=== PATIENT | female | born 1955 | race Caucasian/White ===

== ENCOUNTER → 2016-11-09 | Outpatient (CLI) | payer OTHER ==
--- NOTE | 2016-11-09 12:44 | ECHOF ---
Referral Reason:I51.7 Cardiomegaly MEASUREMENTS -------- HEIGHT: 162.6 cm WEIGHT: 102.1 kg BP: 130/60 RVIDd: 2.7 cm (< 3.3) IVSd: 1.0 cm (0.6 - 1.1) LVIDd: 5.3 cm (3.9 - 5.3) LVPWd: 1.4 cm (0.6 - 1.1) IVSs: 1.3 cm LVIDs: 4.2 cm LVPWs: 1.2 cm LA Diam: 3.4 cm (2.7 - 3.8) Ao Diam: 3.0 cm (2.0 - 3.7) AV Cusp: 1.9 cm (1.5 - 2.6) LA Diam: 3.6 cm (2.7 - 3.8) MV EXCURSION: 17.007 mm (> 18.000) MV EF SLOPE: 71 mm/s (70 - 150) EPSS: 0.8 cm MV E Lucho: 0.41 m/s MV DecT: 169 ms MV A Lucho: 0.67 m/s MV E/A Ratio: 0.61 RAP: 5.00 mmHg RVSP: 13.08 mmHg FINDINGS -------- Sinus rhythm. This was a technically adequate study. There is mild concentric left ventricular hypertrophy. Overall left ventricular systolic function is low-normal with, an EF between 50 - 55 %. The right ventricle is normal in size. The left atrial size is normal. The right atrial size is normal. There is mild aortic valve sclerosis. There is no evidence of aortic regurgitation. Mild mitral annular calcification present. Mild mitral regurgitation is present. Mild tricuspid regurgitation present. There is no evidence of pulmonary hypertension. The right ventricular systolic pressure, as measured by Doppler, is 13.08mmHg. There is no pulmonic regurgitation present. The aortic root size is normal. Echo free space may represent effusion or a pericardial fat pad. CONCLUSIONS -------- 1. There is mild concentric left ventricular hypertrophy. 2. Overall left ventricular systolic function is low-normal with, an EF between 50 - 55 %. 3. There is mild aortic valve sclerosis. 4. Mild mitral annular calcification present. 5. Mild mitral regurgitation is present. 6. Mild tricuspid regurgitation present. 7. There is no evidence of pulmonary hypertension. 8. The right ventricular systolic pressure, as measured by Doppler, is 13.08mmHg. 9. Echo free space may represent effusion or a pericardial fat pad. [employer]LA[employer]OR ROOM WORKER: July Cobos RDCS
--- NOTE | 2016-11-09 12:58 | MM ---
Reason for exam: screening (asymptomatic). Last mammogram was performed 1 year and 2 months ago. History: Patient is postmenopausal. Physical Findings: A clinical breast exam by your physician is recommended on an annual basis and results should be correlated with mammographic findings. MG Screening Mammo w CAD Bilateral CC and MLO view(s) were taken. Prior study comparison: September 02, 2015, bilateral MG 3d screening mammo w/cad. May 10, 2014, bilateral MG screening mammo w CAD. There is no discrete abnormality. ASSESSMENT: Negative, BI-RAD 1 RECOMMENDATION: Routine screening mammogram of both breasts in 1 year.
== END | disposition home or self-care (01) ==
LOC: RADMAMWWP 10:46
PROVIDERS: ATTEND Family Medicine
DX: Z12.31 Encounter for screening mammogram for malignant neoplasm of breast (principal); I51.7 Cardiomegaly; I08.3 Combined rheumatic disorders of mitral, aortic and tricuspid valves
CPT/HCPCS: 93306; G0202

== ENCOUNTER → 2020-12-23 | Outpatient (CLI) | payer MEDICARE ==
--- NOTE | 2020-12-23 20:20 | BD ---
EXAMINATION TYPE: Axial Bone Density DATE OF EXAM: 12/23/2020 COMPARISON: 05.10.2014 CLINICAL HISTORY: 65 YR OLD FEMALE.....ICD-10 CODE: Z78.0 POST MENOPAUSAL Height: 62.3 Weight: 214 FRAX RISK QUESTIONS: Secondary Osteoporosis: YES 3. Menopause before 45: YES, AT AGE 41 RISK FACTORS HISTORY OF: Postmenopausal woman: YES, AT AGE 41, TOTAL HYST Hyperparathyroidism: NO Adrenal Insufficiency: NO MEDICATIONS: Additional Medications: BP MEDS Additional History: HYPERTENSION, POST MENOPAUSAL, ARTHRITIS EXAM MEASUREMENTS: Bone mineral densitometry was performed using the [employer] System. Bone mineral density as measured about the Lumbar spine is: ----- L1-L4(G/cm2): 1.183 T Score Values are as follows: ----- L1: 1.1 ----- L2: -0.8 ----- L3: 0.1 ----- L4: -0.3 ----- L1-L4: 0.0 Bone mineral density has: Decreased -3.5% since study of: 05.10.2014 Bone mineral density about the R hip (g/cm2): 0.994 Bone mineral density about the L hip (g/cm2): 1.062 T Score values are as follows: -----R Neck: -1.4 -----L Neck: -0.8 -----R Total: -0.1 -----L Total: 0.4 Bone mineral density has: Decreased -2.7% since study of: 05.10.2014 FRAX%s: THERE IS A 8.0% CHANCE FOR A MAJOR OSTEOPOROTIC FX AND A 0.8% FOR HIP......PROBABILITY FOR FX IN 10 YRS TIME IMPRESSION: Osteopenia (T Score between -2.5 and -1). There is slightly increased risk of fracture and the patient may be considered for treatment. Re-Screen 2-5 years. NOTE: T-SCORE=SD OF THE YOUNG ADULT MEAN.
--- NOTE | 2020-12-28 13:14 | MM ---
Reason for exam: screening (asymptomatic). Last mammogram was performed 4 years and 1 month ago. History: Patient is postmenopausal. Physical Findings: A clinical breast exam by your physician is recommended on an annual basis and results should be correlated with mammographic findings. MG 3D Screening Mammo W/Cad Bilateral CC and MLO view(s) were taken. Prior study comparison: November 09, 2016, bilateral MG screening mammo w CAD. September 02, 2015, bilateral MG 3d screening mammo w/cad. The breast tissue is heterogeneously dense. This may lower the sensitivity of mammography. ASSESSMENT: Negative, BI-RAD 1 RECOMMENDATION: Routine screening mammogram of both breasts in 1 year.
== END | disposition home or self-care (01) ==
LOC: RADMAMWWP 07:38
PROVIDERS: ATTEND Family Medicine
DX: Z12.31 Encounter for screening mammogram for malignant neoplasm of breast (principal); Z78.0 Asymptomatic menopausal state; M85.80 Other specified disorders of bone density and structure, unspecified site
CPT/HCPCS: 77063; 77067; 77080

== ENCOUNTER → 2022-02-07 | Outpatient (CLI) | payer MEDICARE ==
--- NOTE | 2022-02-08 17:25 | MM ---
Reason for Exam: Screening (asymptomatic). Last mammogram was performed 1 year(s) and 1 month(s) ago. Patient History: Menarche at age 10. First Full-Term at age 18. Left ovary removed at age 38. Right ovary removed at age 38. Hysterectomy at age 38. Postmenopausal. Risk Values: Gela 5 year model risk: 1.3%. NCI Lifetime model risk: 4.6%. Prior Study Comparison: 09/02/2015 Bilateral Screening Mammogram, [facility]. 11/09/2016 Bilateral Screening Mammogram, [facility]. 12/23/2020 Bilateral Screening Mammogram, [facility]. Tissue Density: The breast tissue is heterogeneously dense. This may lower the sensitivity of mammography. Findings: Analyzed By CAD. Unchanged bilateral asymmetric densities. No significant change from prior exams. Overall Assessment: Benign, BI-RAD 2 Management: Screening Mammogram of both breasts in 1 year. 1. Patient should continue monthly self breast exams. 2. A clinical breast exam by your physician is recommended on an annual basis. 3. This exam should not preclude additional follow-up of suspicious palpable abnormalities. Electronically signed and approved by: Kendall Willett M.D. Radiologist
== END | disposition home or self-care (01) ==
LOC: RADMAMWWP 08:14
PROVIDERS: ATTEND Family Medicine
DX: Z12.31 Encounter for screening mammogram for malignant neoplasm of breast (principal); Z78.0 Asymptomatic menopausal state
CPT/HCPCS: 77063; 77067

== ENCOUNTER → 2023-02-27 | Outpatient (CLI) | payer MEDICARE ==
--- NOTE | 2023-02-27 11:02 | BD ---
EXAMINATION TYPE: Axial Bone Density DATE OF EXAM: 02/27/2023 CLINICAL HISTORY: 67 years old Female. ICD-10 CODE: Z78.0 ASYMPTOMATIC GERALDINE Height: 63.5 in Weight: 216 lbs FRAX RISK QUESTIONS: Secondary Osteoporosis: 3. Menopause before 45: total hysterectomy age 38 RISK FACTORS HISTORY OF: Active: yes Postmenopausal woman: total hysterectomy age 38 MEDICATIONS: Additional Medications: blood pressure meds EXAM MEASUREMENTS: Bone mineral densitometry was performed using the [employer] System. Bone mineral density as measured about the Lumbar spine is: ----- L1-L4(G/cm2): 1.146 T Score Values are as follows: ----- L1: -0.2 ----- L2: -0.7 ----- L3: -0.2 ----- L4: -0.2 ----- L1-L4: -0.3 Z Score Values are as follows: ----- L1: 0.3 ----- L2: -0.2 ----- L3: 0.4 ----- L4: 0.4 ----- L1-L4: 0.3 Bone mineral density has: Decreased -3.1% since study of: 12/23/2020 Bone mineral density about the R hip (g/cm2): 0.941 Bone mineral density about the L hip (g/cm2): 1.024 T Score values are as follows: -----R Neck: -1.6 -----L Neck: -1.5 -----R Total: -0.5 -----L Total: 0.1 Z Score values are as follows: -----R Neck: -0.7 -----L Neck: -0.6 -----R Total: 0.1 -----L Total: 0.7 Bone mineral density has: Decreased -4.0% since study of: 12/23/2020 FRAX%s: The graph provided illustrates a 9.0% chance for a major osteoporotic fx and a 1.2% chance fo r the hips probability for fx in 10 years time. IMPRESSION: Osteopenia (T Score between -2.5 and -1). There is slightly increased risk of fracture and the patient may be considered for treatment. Re-Screen 2-5 years. NOTE: T-SCORE=SD OF THE YOUNG ADULT MEAN.
--- NOTE | 2023-02-28 08:39 | MM ---
Reason for Exam: Screening (asymptomatic). Last mammogram was performed 1 year(s) and 1 month(s) ago. Patient History: Menarche at age 10. First Full-Term at age 18. Left ovary removed at age 38. Right ovary removed at age 38. Hysterectomy at age 38. Postmenopausal. Risk Values: Gela 5 year model risk: 1.4%. NCI Lifetime model risk: 4.4%. Prior Study Comparison: 11/09/2016 Bilateral Screening Mammogram, [facility]. 12/23/2020 Bilateral Screening Mammogram, [facility]. 02/07/2022 Bilateral MG 3D screening mammo w/cad, [facility]. Tissue Density: The breast tissue is heterogeneously dense. This may lower the sensitivity of mammography. Findings: Analyzed By CAD. There is no suspicious group of microcalcifications or new suspicious mass in either breast. Overall Assessment: Negative, BI-RAD 1 Management: Screening Mammogram of both breasts in [address] [facility] will attempt to contact patient to return for supplemental views and ultrasound if indicated. Patient should continue monthly self-breast exams. A clinical breast exam by your physician is recommended on an annual basis. This exam should not preclude additional follow-up of suspicious palpable abnormalities. Note on Gela scores and lifetime risk: 1. A Gela score greater than 3% is considered moderate risk. If this is the case, consider specialist referral to assess eligibility for a risk reducing agent. 2. If overall lifetime risk for the development of breast cancer is 20% or higher, the patient may qualify for future screening with alternating mammogram and breast MRI. Electronically signed and approved by: Miller Centeno DO
== END | disposition home or self-care (01) ==
LOC: RADMAMWWP 08:53
PROVIDERS: ATTEND Family Medicine
DX: Z12.31 Encounter for screening mammogram for malignant neoplasm of breast (principal); M85.89 Other specified disorders of bone density and structure, multiple sites; Z78.0 Asymptomatic menopausal state
CPT/HCPCS: 77067; 77080

== ENCOUNTER 2023-04-03 12:55 | Day surgery (SDC) | payer MEDICARE ==
[2023-04-03 13:51] VITALS: TEMP 97.6
[2023-04-03] MEDS ORDERED: LACTATED RINGERS 1,000 ML IV ONE ×2 (13:58)
[2023-04-03] MEDS ORDERED: ONDANSETRON 4 MG/2 ML VIAL ONE (13:59)
[2023-04-03] MEDS ORDERED: ONDANSETRON 4 MG/2 ML VIAL IVP ONE (14:00)
[2023-04-03] MEDS ORDERED: PROPOFOL 10 MG/ML 20 ML VIAL IV ONE (14:14)
[2023-04-03] MEDS ORDERED: LIDOCAINE 2% INJ 20 MG/ML (2 ML VIAL) ONE (14:14)
--- NOTE | 2023-04-03 14:37 | P.PCN ---
Date of Procedure: 04/03/23 Procedure(s) Performed: BRIEF HISTORY: Patient is a 67-year-old pleasant white female scheduled for an elective colonoscopy as a part of pain for colon cancer/positive cologuard. PROCEDURE PERFORMED: Colonoscopy. PREOPERATIVE DIAGNOSIS: In for colon cancer/positive cologurd. IV sedation per Anesthesia. PROCEDURE: After informed consent was obtained, the patient, was brought into the endoscopy unit. IV sedation was administered by Anesthesia under continuous monitoring. Digital rectal examination was normal. Initially the Olympus CF-160 flexible video colonoscope was then inserted in the rectum, gradually advanced into the cecum without any difficulty. Careful examination was performed as the scope was gradually being withdrawn. Ileocecal valve and the appendiceal orifice were visualized and appeared normal. Prep was fair.. Mucosa of the cecum, ascending colon, transverse colon, descending colon, sigmoid colon, and rectum appeared normal. Retroflexion was performed in the rectum and no lesions were seen. The patient tolerated the procedure well. IMPRESSION: Normal-appearing colon from rectum to cecum no evidence of colorectal neoplasia . RECOMMENDATIONS: Findings of this examination were discussed with the patient as well as her family. She was advised to have a repeat screening colonoscopy in 10 years..
[2023-04-03 15:04] VITALS: BP 121/72; PULSE 78; RESP 17
== END 2023-04-03 15:24 | disposition home or self-care (01) ==
LOC: ORWHC2ENDO 12:55
PROVIDERS: ATTEND Internal Medicine Gastroenterology
DX: R19.5 Other fecal abnormalities (principal); Z79.899 Other long term (current) drug therapy; Z88.5 Allergy status to narcotic agent; Z85.828 Personal history of other malignant neoplasm of skin; I10 Essential (primary) hypertension; M19.90 Unspecified osteoarthritis, unspecified site
CPT/HCPCS: 45378; J2405; J2704; J2001

== ENCOUNTER → 2025-01-01 | Outpatient (CLI) | payer MEDICARE ==
--- NOTE | 2025-01-01 08:39 | MM ---
Reason for Exam: Screening (asymptomatic). Last mammogram was performed 1 year(s) and 10 month(s) ago. Patient History: Menarche at age 10. First Full-Term at age 18. Left ovary removed at age 38. Right ovary removed at age 38. Hysterectomy at age 38. Postmenopausal. Risk Values: Gela 5 year model risk: 1.4%. NCI Lifetime model risk: 4.0%. Prior Study Comparison: 12/23/2020 Bilateral Screening Mammogram, [facility]. 02/07/2022 Bilateral MG 3D screening mammo w/cad, [facility]. 02/27/2023 Bilateral MG screening mammo w CAD, [facility]. Tissue Density: The breasts are heterogeneously dense, which may obscure small masses. Findings: Analyzed By CAD. There is no suspicious group of microcalcifications or new suspicious mass in either breast. Overall Assessment: Negative, BI-RAD 1 Management: Screening Mammogram of both breasts in 1 year. Patient should continue monthly self-breast exams. A clinical breast exam by your physician is recommended on an annual basis. This exam should not preclude additional follow-up of suspicious palpable abnormalities. Note on Gela scores and lifetime risk: 1. A Gela score greater than 3% is considered moderate risk. If this is the case, consider specialist referral to assess eligibility for a risk reducing agent. 2. If overall lifetime risk for the development of breast cancer is 20% or higher, the patient may qualify for future screening with alternating mammogram and breast MRI. [facility], , 01/01/2025 8:36 AM. Electronically signed and approved by: Kendall Willett M.D. Radiologist
== END | disposition home or self-care (01) ==
LOC: RADMAMWWP 07:47
PROVIDERS: ATTEND Family Medicine
DX: Z12.31 Encounter for screening mammogram for malignant neoplasm of breast (principal); R92.333 Mammographic heterogeneous density, bilateral breasts; Z78.0 Asymptomatic menopausal state
CPT/HCPCS: 77063; 77067